=== PATIENT | female | born 1940 | race Caucasian/White ===

== ENCOUNTER 2017-12-14 23:15 | Emergency (ER) | payer MEDICARE ==
[~2017-12-14] VITALS: Ht 170.2 cm; Wt 81.8 kg
[2017-12-14 23:19] VITALS: BP 177/90
[2017-12-15] MEDS ORDERED: TETanus/Pertussis (Acell)/Diphther VAC/PF (Tdap-Adult) 0.5ml syringe IM ONE (00:25)
[2017-12-15] MEDS ORDERED: AZIT250T PO (00:52)
== END 2017-12-15 00:51 | disposition home or self-care (01) ==
LOC: ER 23:16
DX: S61.412A Laceration without foreign body of left hand, initial encounter (principal); S51.812A Laceration without foreign body of left forearm, initial encounter; S60.512A Abrasion of left hand, initial encounter; S50.812A Abrasion of left forearm, initial encounter; Z79.82 Long term (current) use of aspirin; W55.03XA Scratched by cat, initial encounter; Y93.89 Activity, other specified; Y92.89 Other specified places as the place of occurrence of the external cause; Y99.9 Unspecified external cause status
CPT/HCPCS: 90471; 90715; 99284

== ENCOUNTER 2019-10-13 11:08 | Emergency (ER) | payer MEDICARE ==
[~2019-10-13] VITALS: Ht 167.6 cm; Wt 84.0 kg
[2019-10-13 12:06] LABS: CLARITY,URINE SLIGHTLY CLOUDY (Clear); COLOR,URINE YELLOW (Yellow); GLUCOSE, URINE NEGATIVE (Neg); KETONES,URINE NEGATIVE (Neg); LEUKOCYTE ESTERASE ,URINE SMALL (Neg); NITRITES, URINE NEGATIVE (Neg); OCCULT BLOOD,URINE TRACE-INTACT (Neg); PROTEIN,URINE NEGATIVE (Neg); UROBILINOGEN,URINE 0.2 E.U/dL (0.2-1.0)
[2019-10-13 12:16] LABS: UA COLLECTION TYPE CLN CATCH MIDSTREAM
[2019-10-13] MEDS ORDERED: ondansetron 4mg rapidly disintigrating tab PO ONE (12:25)
[2019-10-13] MEDS ORDERED: ketorolac tromethamine 15mg/ml inj. IM ONE (12:25)
[2019-10-13] MEDS ORDERED: ketorolac trometh inj. 60 MG/2 ML VIAL IM ONE (12:25)
[2019-10-13 12:31] LABS: MUCUS STRANDS NONE SEEN /LPF (Neg); SQUAMOUS EPITHELIAL CELL,UR FEW /LPF (FEW)
[2019-10-13 12:32] LABS: WBC CLUMPS,URINE FEW /HPF (NEGATIVE)
[2019-10-13 12:33] LABS: BACTERIA,URINE 1+ /HPF (Neg)
[2019-10-13 13:30] LABS: BASOPHILS % (AUTO) 0.3 % (0-1); EOSINOPHILS % (AUTO) 0.3 % (0-6); HEMATOCRIT 41.2 % (35.0-45.0); HEMOGLOBIN 13.5 g/dl (12.0-16.0); LYMPHOCYTES # (AUTO) 0.5 X10'3 (1.1-4.8); LYMPHOCYTES % (AUTO) 4.2 % (21-51); MEAN CORPUSCULAR HEMOGLOBIN 28.1 PG (27.0-31.0); MEAN CORPUSCULAR HGB CONC 32.7 g/dL (33.0-36.5); MEAN CORPUSCULAR VOLUME 85.9 FL (78-98); MEAN PLATELET VOLUME 8.7 FL (7.4-10.4); MONOCYTES # (AUTO) 0.1 X10'3 (0-0.9); MONOCYTES % (AUTO) 1.2 % (2-12); NEUTROPHILS # (AUTO) 10.3 X10'3 (1.8-7.7); PLATELET COUNT 220 X10'3 (140-440); RED CELL DISTRIBUTION WIDTH 14.6 % (11.5-14.5); WHITE BLOOD COUNT 10.9 X10'3 (4.5-11.0)
[2019-10-13 13:39] LABS: ALANINE AMINOTRANSFERASE 20 U/L (12-78); ALBUMIN 3.7 G/DL (3.4-5.0); ALBUMIN/GLOBULIN RATIO 1.1 (1.1-1.5); ALKALINE PHOSPHATASE 128 IU/L (46-116); ANION GAP 10 (8-16); ASPARTATE AMINO TRANSFERASE 22 U/L (10-37); BILIRUBIN,TOTAL 0.4 MG/DL (0.1-1.0); BLOOD UREA NITROGEN 18 MG/DL (7-18); CHLORIDE 103 MMOL/L (99-107); GLUCOSE 127 MG/DL (70-104); LIPASE 84 U/L (73-393); POTASSIUM 3.7 MMOL/L (3.5-5.1); SODIUM 139 MMOL/L (135-145); TOTAL CARBON DIOXIDE 26.5 MMOL/L (24-32); TOTAL PROTEIN 7.1 G/DL (6.4-8.2); eGFR 53 ML/MIN
[2019-10-13] MEDS ORDERED: FLO0.4C PO (13:58)
[2019-10-13] MEDS ORDERED: CEPH500C5 PO (13:58)
[2019-10-13] MEDS ORDERED: TRAM50TA2 PO (13:58)
[2019-10-13] MEDS ORDERED: CefTRIAXone/D5W-Rocephin 1gm 50 ML IV ONE (14:00)
[2019-10-13] MEDS ORDERED: CefTRIAXone 1000mg IM Kit (w/lidocaine diluent) IM ONE (14:20)
[2019-10-13 14:27] VITALS: BP 138/63
[2019-10-13] MEDS ORDERED: BUPR-72 PO (23:00)
[2019-10-13] MEDS ORDERED: LEVO75TA7 PO (23:00)
[2019-10-13] MEDS ORDERED: LOSA50TA64 PO (23:00)
[2019-10-13] MEDS ORDERED: ATOR20TA66 PO (23:00)
[2019-10-16] MEDS ORDERED: PHEN-824 PO (11:13)
== END 2019-10-13 14:31 | disposition home or self-care (01) ==
LOC: ER 11:08
DX: N20.0 Calculus of kidney (principal); N12 Tubulo-interstitial nephritis, not specified as acute or chronic; R10.30 Lower abdominal pain, unspecified; R11.0 Nausea; F32.9 Major depressive disorder, single episode, unspecified; Z72.89 Other problems related to lifestyle; Z60.2 Problems related to living alone; Z79.2 Long term (current) use of antibiotics; Z79.899 Other long term (current) drug therapy
CPT/HCPCS: 96372; 99284; J0696; J1885; 36415; 74176; 80053; 81001; 83690; 85025; 87077; 87088; 87186

== ENCOUNTER 2020-09-14 08:34 | Emergency (ER) | payer MEDICARE ==
[~2020-09-14] VITALS: Ht 167.6 cm; Wt 76.6 kg
[~2020-09-14 08:34] MED LIST: ATOR20TA66 PO; BUPR-72 PO; LEVO75TA7 PO; LOSA50TA64 PO; PHEN-824 PO
[2020-09-14] MEDS ORDERED: normal saline 1000ML IV soln IVB ONE (09:00)
[2020-09-14] MEDS ORDERED: pantoprazole 40 MG vial IV ONE (09:00)
[2020-09-14] MEDS ORDERED: ondansetron/PF 4mg/2ml inj IV ONE (09:00)
[2020-09-14] MEDS ORDERED: morphine 4 MG/ML inj SYRINge IV PRN (09:00)
[2020-09-14] MEDS ORDERED: famotidine/PF 10 mg/ml inj IV ONE (09:00)
--- NOTE | 2020-09-14 09:45 | NUR ---
PT HAD EMESIS OF AMOR BLOOD, APPROX 50ML
[2020-09-14 09:55] LABS: BASOPHILS # (AUTO) 0.1 X10'3 (0-0.2); BASOPHILS % (AUTO) 0.6 % (0-1); EOSINOPHILS # (AUTO) 0.2 X10'3 (0-0.9); EOSINOPHILS % (AUTO) 1.6 % (0-6); HEMATOCRIT 35.9 % (35.0-45.0); HEMOGLOBIN 11.5 g/dl (12.0-16.0); LYMPHOCYTES # (AUTO) 2.3 X10'3 (1.1-4.8); MEAN CORPUSCULAR HGB CONC 31.9 g/dL (33.0-36.5); MEAN CORPUSCULAR VOLUME 81.7 FL (78-98); MEAN PLATELET VOLUME 9.2 FL (7.4-10.4); MONOCYTES # (AUTO) 1.1 X10'3 (0-0.9); MONOCYTES % (AUTO) 7.2 % (2-12); NEUTROPHILS # (AUTO) 11.6 X10'3 (1.8-7.7); NEUTROPHILS % (AUTO) 75.6 % (42-75); PLATELET COUNT 322 X10'3 (140-440); RED CELL DISTRIBUTION WIDTH 15.5 % (11.5-14.5); WHITE BLOOD COUNT 15.3 X10'3 (4.5-11.0)
--- NOTE | 2020-09-14 09:59 | NUR ---
PT WAS ASSITED TO [facility] AND HAD BM, PT NOTED HAVING AMOR BLOOD WITH LARGE GRAPE SIZE CLOT
[2020-09-14 10:08] LABS: ALANINE AMINOTRANSFERASE 29 U/L (12-78); ALBUMIN 2.8 G/DL (3.4-5.0); ALBUMIN/GLOBULIN RATIO 0.7 (1.1-1.5); ALKALINE PHOSPHATASE 286 IU/L (46-116); ANION GAP 13 (8-16); ASPARTATE AMINO TRANSFERASE 25 U/L (10-37); BILIRUBIN,TOTAL 0.5 MG/DL (0.1-1.0); BLOOD UREA NITROGEN 13 MG/DL (7-18); BUN/CREATININE RATIO 15.3 (6.6-38.0); CALCIUM 8.8 MG/DL (8.5-10.1); CHLORIDE 104 MMOL/L (99-107); CREATININE 0.85 MG/DL (0.40-0.90); GLUCOSE 222 MG/DL (70-104); POTASSIUM 4.1 MMOL/L (3.5-5.1); SODIUM 142 MMOL/L (135-145); TOTAL CARBON DIOXIDE 25.4 MMOL/L (24-32); TOTAL PROTEIN 6.6 G/DL (6.4-8.2); eGFR 64 ML/MIN
[2020-09-14 10:11] LABS: LIPASE < 50 U/L (73-393); TROPONIN I < 0.04 NG/ML (0.0-0.05)
[2020-09-14] MEDS: pantoprazole 40MG/NS 100ML BAG 100 ML IV SCH ×3 (10:20→16:51)
[2020-09-14 14:16] LABS: CLARITY,URINE SLIGHTLY CLOUDY (Clear); COLOR,URINE YELLOW (Yellow); GLUCOSE, URINE NEGATIVE (Neg); KETONES,URINE 15 mg/dl (Neg); LEUKOCYTE ESTERASE ,URINE NEGATIVE (Neg); NITRITES, URINE NEGATIVE (Neg); OCCULT BLOOD,URINE NEGATIVE (Neg); PH,URINE 7.5 (4.8-8.0); PROTEIN,URINE NEGATIVE (Neg); UROBILINOGEN,URINE 0.2 E.U/dL (0.2-1.0)
[2020-09-14 14:23] LABS: UA COLLECTION TYPE CLN CATCH MIDSTREAM
[2020-09-14 14:24] LABS: BACTERIA,URINE 4+ /HPF (Neg); RBC,URINE NONE SEEN /HPF (0-2); SQUAMOUS EPITHELIAL CELL,UR FEW /LPF (FEW)
--- NOTE | 2020-09-14 16:19 | NUR ---
PER TECH, PATIENT IS ACCEPTED AT [facility]
--- NOTE | 2020-09-14 17:22 | NUR ---
on hold with Day Ernandez at [phone] for room 170, changed from 184, Oncology, to give report
--- NOTE | 2020-09-14 17:26 | NUR ---
ACCEPTING MD IS TELMA
--- NOTE | 2020-09-14 17:32 | NUR ---
REPORT TO HUMZA MURRELLDEVELOPMENTAL BEHAVIORAL PHYSICIAN AT [facility]. PATIENT GOING TO ROOM 170
[2020-09-14] MEDS ORDERED: proCHLORperazine 10 MG/2 ml inj IV ONE (18:15)
--- NOTE | 2020-09-14 18:23 | NUR ---
REPORT TO [facility] ANN-MARIE
[2020-09-14 22:28] VITALS: BP 132/66
== END 2020-09-14 18:35 | disposition short-term general hospital (02) ==
LOC: ER 08:34
DX: R91.8 Other nonspecific abnormal finding of lung field (principal); Z20.822 Contact with and (suspected) exposure to COVID-19; K92.2 Gastrointestinal hemorrhage, unspecified; N94.89 Other specified conditions associated with female genital organs and menstrual cycle; F19.20 Other psychoactive substance dependence, uncomplicated; K85.90 Acute pancreatitis without necrosis or infection, unspecified; R10.10 Upper abdominal pain, unspecified; R10.30 Lower abdominal pain, unspecified; K59.00 Constipation, unspecified; E78.00 Pure hypercholesterolemia, unspecified; I10 Essential (primary) hypertension; K21.9 Gastro-esophageal reflux disease without esophagitis; F32.9 Major depressive disorder, single episode, unspecified; Z87.442 Personal history of urinary calculi; Z87.440 Personal history of urinary (tract) infections; Z72.89 Other problems related to lifestyle; Z60.2 Problems related to living alone; Z88.8 Allergy status to other drugs, medicaments and biological substances; Z79.899 Other long term (current) drug therapy
CPT/HCPCS: 36415; 71045; 74176; 80053; 81001; 83690; 84484; 85025; 85610; 86885; 86900; 86901; 87077; 87088; 87186; 87635; 96361; 96365; 96366; 96375; 99285; C9113; C9803; J0780; J2405; J3490; J7030